=== PATIENT | male | born 1980 | race Caucasian/White ===

== ENCOUNTER 2021-09-13 21:42 | Day surgery (SDC) | payer OTHER ==
[~2021-09-13 21:42] MED LIST: CARAFATE S500 MG/TSP PO; NEURONTIN300 MG PO; NORCO 10-325 T1 EACH PO; PRILOSEC20 MG PO; ZANTAC150 MG PO
== END 2021-09-14 10:50 | disposition home or self-care (01) ==
LOC: FER 21:42 → FOR 09-14 03:11 → FMS 09-14 09:05 → FOR 09-14 10:50
DX: T18.128A Food in esophagus causing other injury, initial encounter (principal); K20.90 Esophagitis, unspecified without bleeding; K29.70 Gastritis, unspecified, without bleeding; U07.1 COVID-19; G89.29 Other chronic pain; M79.9 Soft tissue disorder, unspecified; F17.200 Nicotine dependence, unspecified, uncomplicated; X58.XXXA Exposure to other specified factors, initial encounter; Z88.8 Allergy status to other drugs, medicaments and biological substances; Z79.899 Other long term (current) drug therapy; Z90.49 Acquired absence of other specified parts of digestive tract
CPT/HCPCS: 71250; J1610; J2250; J2405; J2550; J3010; J7030; J7120; U0002

== ENCOUNTER → 2021-10-11 | Day surgery (SDC) | payer OTHER ==
[~2021-10-11] VITALS: Ht 180.3 cm; Wt 68.2 kg
[~2021-10-11] MED LIST changes: +BENTYL10 MG PO; +EMGALITY120 MG/1 M IM; +QUETIAPINE FUMA50 MG PO
== END | disposition home or self-care (01) ==
LOC: FAS 08:08
DX: K22.2 Esophageal obstruction (principal); K20.0 Eosinophilic esophagitis; J45.909 Unspecified asthma, uncomplicated; F41.9 Anxiety disorder, unspecified; M19.90 Unspecified osteoarthritis, unspecified site; F17.210 Nicotine dependence, cigarettes, uncomplicated; Z88.8 Allergy status to other drugs, medicaments and biological substances; Z79.899 Other long term (current) drug therapy
CPT/HCPCS: J2704; J7120